=== PATIENT | female | born 1965 | race Caucasian/White ===

== ENCOUNTER 2025-02-12 14:21 | Emergency (ER) | payer BC ==
[~2025-02-12] VITALS: Ht 157.5 cm; Wt 66.4 kg
[2025-02-12 14:26] VITALS: TEMP 98.6
[2025-02-12] MEDS ORDERED: ATOR20TA PO (14:26)
[2025-02-12 15:05] VITALS: BP 136/70; PULSE 71; RESP 17; O2SAT 99
[2025-02-12] MEDS: ACETAMINOPHEN 500 MG TABLET PO ONE (15:23)
[2025-02-12] MEDS: IBUPROFEN 400 MG TABLET PO ONE (16:39)
== END 2025-02-12 18:32 | disposition home or self-care (01) ==
LOC: EMS 14:21
DX: S09.90XA Unspecified injury of head, initial encounter (principal); E78.00 Pure hypercholesterolemia, unspecified; Z98.890 Other specified postprocedural states; Z79.899 Other long term (current) drug therapy; W01.0XXA Fall on same level from slipping, tripping and stumbling without subsequent striking against object, initial encounter; Y93.89 Activity, other specified; Y92.89 Other specified places as the place of occurrence of the external cause; Y99.8 Other external cause status
CPT/HCPCS: 70450; 99284